=== PATIENT | female | born 1930 | race Caucasian/White ===

== ENCOUNTER 2016-04-30 11:39 | Emergency (ER) | payer MEDICARE, OTHER ==
[2016-04-30 12:16] LABS: BASOPHIL 0.3 % (0-2); EOSINOPHIL 0.8 % (0-7); HCT 40.6 % (37.0-47.0); HGB 13.2 g/dl (12.5-16.0); LYMPHOCYTE 50.6 % (15-48); MCH 28.3 pg (25.0-31.0); MCHC 32.5 g/dL (32.0-36.0); MCV 87.1 fL (78.0-100.0); MPV 10.1 fL (6.0-9.5); NEUTROPHIL 34.3 % (41-80); PLT 251 K/uL (150-400); RBC 4.66 M/uL (4.20-5.40); RDW 19.9 % (11.5-14.0); WBC 6.2 K/uL (4.0-10.5)
[2016-04-30 12:27] LABS: ALBUMIN 4.2 g/dL (3.4-4.8); BILIRUBIN - TOTAL 0.5 mg/dL (0.1-1.0); CREATININE 0.7 mg/dL (0.5-1.0); GLOBULIN (CALCULATION) 3.3 g/dL (2.2-4.2); TOTAL PROTEIN 7.5 g/dL (6.4-8.3)
== END 2016-04-30 16:46 | disposition home or self-care (01) ==
LOC: FER 11:39
PROVIDERS: Internal Medicine
DX: B02.29 Other postherpetic nervous system involvement (principal); I71.4 Abdominal aortic aneurysm, without rupture; E11.9 Type 2 diabetes mellitus without complications; I10 Essential (primary) hypertension; E78.5 Hyperlipidemia, unspecified; F17.210 Nicotine dependence, cigarettes, uncomplicated; Z79.4 Long term (current) use of insulin; Z79.899 Other long term (current) drug therapy
CPT/HCPCS: 36415; 71010; 71275; 80053; 84484; 85025; 85379; 93005; J1170; J2405; Q9967

== ENCOUNTER 2016-05-14 09:53 | Emergency (ER) | payer MEDICARE, OTHER ==
[2016-05-14 12:03] LABS: BILIRUBIN 2+ mg/dL (NEGATIVE); BLOOD 1+ Ery/uL (NEGATIVE); CLARITY CLEAR (CLEAR); COLOR YELLOW (YELLOW); GLUCOSE (U) NORMAL (NORMAL); KETONE (U) TRACE mg/dL (NEGATIVE); LEUKOCYTES NEGATIVE Leu/uL (NEGATIVE); NITRITE NEGATIVE (NEGATIVE); PROTEIN 2+ mg/dL (NEGATIVE); SPECIFIC GRAVITY >=1.030 (1.001-1.030)
[2016-05-14 12:05] LABS: BASOPHIL 0 % (0-2); EOSINOPHIL 0.5 % (0-7); HCT 37.9 % (37.0-47.0); HGB 12.3 g/dl (12.5-16.0); LYMPHOCYTE 33.7 % (15-48); MCH 28.6 pg (25.0-31.0); MCHC 32.5 g/dL (32.0-36.0); MCV 88.1 fL (78.0-100.0); MONOCYTE 17.6 % (0-12); MPV 10.6 fL (6.0-9.5); NEUTROPHIL 48.2 % (41-80); PLT 216 K/uL (150-400); RDW 17.5 % (11.5-14.0); WBC 6.4 K/uL (4.0-10.5)
[2016-05-14 12:09] LABS: BACTERIA TRACE; MUCOUS LARGE
[2016-05-14 12:19] LABS: ALBUMIN 3.8 g/dL (3.4-4.8); BILIRUBIN - TOTAL 0.5 mg/dL (0.1-1.0); CREATININE 0.5 mg/dL (0.5-1.0); POTASSIUM 3.1 mmol/L (3.5-5.1); TOTAL PROTEIN 6.8 g/dL (6.4-8.3)
== END 2016-05-14 13:55 | disposition home or self-care (01) ==
LOC: FER 09:53
PROVIDERS: Emergency Medicine
DX: E86.0 Dehydration (principal); R11.2 Nausea with vomiting, unspecified
CPT/HCPCS: 36415; 80053; 81001; 85025; J2405

== ENCOUNTER 2016-05-19 11:10 | Emergency (ER) | payer MEDICARE, OTHER ==
[2016-05-19 12:42] LABS: BASOPHIL 0.3 % (0-2); EOSINOPHIL 0.6 % (0-7); HCT 39.7 % (37.0-47.0); HGB 12.8 g/dl (12.5-16.0); LYMPHOCYTE 35.7 % (15-48); MCH 28.4 pg (25.0-31.0); MCHC 32.2 g/dL (32.0-36.0); MCV 88.2 fL (78.0-100.0); MONOCYTE 20.1 % (0-12); MPV 10.8 fL (6.0-9.5); NEUTROPHIL 43.3 % (41-80); PLT 237 K/uL (150-400); RDW 17.4 % (11.5-14.0); WBC 6.2 K/uL (4.0-10.5)
[2016-05-19 13:05] LABS: ALBUMIN 3.7 g/dL (3.4-4.8); BILIRUBIN - TOTAL 0.5 mg/dL (0.1-1.0); CREATININE 0.6 mg/dL (0.5-1.0); GLOBULIN (CALCULATION) 3.4 g/dL (2.2-4.2); POTASSIUM 3.4 mmol/L (3.5-5.1); TOTAL PROTEIN 7.1 g/dL (6.4-8.3)
[2016-05-19 13:09] LABS: BILIRUBIN 2+ mg/dL (NEGATIVE); BLOOD NEGATIVE Ery/uL (NEGATIVE); CLARITY CLEAR (CLEAR); COLOR YELLOW (YELLOW); GLUCOSE (U) NORMAL (NORMAL); KETONE (U) 1+ (SMALL) mg/dL (NEGATIVE); LEUKOCYTES 1+ Leu/uL (NEGATIVE); NITRITE NEGATIVE (NEGATIVE); PROTEIN 1+ mg/dL (NEGATIVE); SPECIFIC GRAVITY 1.025 (1.001-1.030)
[2016-05-19 13:14] LABS: BACTERIA 3+; URINARY WBC RARE
== END 2016-05-19 15:01 | disposition home or self-care (01) ==
LOC: FER 11:10
PROVIDERS: Internal Medicine
DX: R11.10 Vomiting, unspecified (principal); R63.4 Abnormal weight loss; B02.29 Other postherpetic nervous system involvement; Z88.2 Allergy status to sulfonamides
CPT/HCPCS: 36415; 71010; 80053; 81001; 82150; 83605; 83690; 84484; 85025; 87040; 93005; J2405